=== PATIENT | female | born 1955 | race Hispanic/Latino ===

== ENCOUNTER 2021-04-19 06:03 | Inpatient (IN) | payer MEDICARE ==
[2021-04-19] VITALS (27 sets, daily range): BP systolic 111–140; BP diastolic 40–76
[2021-04-19] MEDS: CEFAZOLIN SODIUM 1 GM VIAL IVP SCH ×4 (06:00→19:00)
[~2021-04-19 06:03] MED LIST: GABA600T10 PO
[2021-04-19 07:00] LABS: APPEARANCE,URINE Clear (CLEAR); BILIRUBIN,URINE Negative (NEGATIVE); COLOR,URINE Yellow (YELLOW); GLUCOSE, URINE (UA) Negative (NEGATIVE); KETONES,URINE Trace mg/dL (NEGATIVE); LEUKOCYTE ESTERASE ,URINE Negative (NEGATIVE); NITRATE,URINE Negative (NEGATIVE); OCCULT BLOOD,URINE Negative (NEGATIVE); PROTEIN,URINE POS 2+ mg/dL (NEGATIVE)
[2021-04-19 07:11] LABS: BASOPHILS % (AUTO) 0.6 % (0.0-5.0); EOSINOPHILS % (AUTO) 1.5 % (0.0-8.0); HEMATOCRIT 41.9 % (36-48); LYMPHOCYTES % (AUTO) 26.4 % (21.0-51.0); MEAN CORPUSCULAR HEMOGLOBIN 32.9 pg (27.0-33.0); MEAN CORPUSCULAR HGB CONC 32.7 g/dL (32.0-36.0); MEAN CORPUSCULAR VOLUME 100.5 fL (79-99); NEUTROPHILS % (AUTO) 62.1 % (40.0-77.0); PLATELET COUNT (AUTO) 293 K/uL (130-400); RED BLOOD CELL COUNT(AUTO) 4.17 MIL/uL (4.00-5.50); RED CELL DISTRIBUTION WIDTH 12.9 % (11.0-15.5); WHITE BLOOD COUNT (AUTO) 9.4 K/uL (4.8-10.8)
[2021-04-19 07:12] LABS: BACTERIA,URINE Rare /HPF (None Seen); HYALINE CASTS, URINE 0-1 /LPF (0-1 /LPF); RBC,URINE 0-1 /HPF (0-1); SQUAMOUS EPITHELIAL CELL,UR Rare /HPF (0-2)
[2021-04-19] MEDS ORDERED: 0.9%NACL 1000ML 1,000 ML IV ONE (07:15)
[2021-04-19 07:18] LABS: INR 0.96 (0.85-1.15); PROTHROMBIN TIME 10.5 SEC (9.6-11.6)
[2021-04-19 07:20] LABS: CREATININE 0.5 mg/dL (0.5-1.5); POTASSIUM 3.6 mmol/L (3.5-5.1)
[2021-04-19] MEDS ORDERED: KETAMINE 50MG/ML SYRINGE 50 MG/ML DISP.SYRIN IV ONE (08:01)
[2021-04-19] MEDS ORDERED: LIDOCAINE PF 100MG/5ML (2%) SYRINGE 5ML ONE (08:02)
[2021-04-19] MEDS ORDERED: SUCCINYLCHOLINE CHLORIDE 20 MG/ML 10 ML VIAL ONE (08:02)
[2021-04-19] MEDS ORDERED: ROPIVACAINE 0.5% 5MG/ML 30ML IJ ONE ×2 (08:02)
[2021-04-19] MEDS ORDERED: PROPOFOL 10 MG/ML 20ML VIAL IV ONE (08:03)
[2021-04-19] MEDS ORDERED: MIDAZOLAM HCL 1 MG/ML 2ML VIAL ONE (08:13)
[2021-04-19] MEDS ORDERED: ROCURONIUM 10MG/1ML SYR 10 MG/ML ML ONE (08:30)
[2021-04-19] MEDS ORDERED: CEFAZOLIN SODIUM 1 GM VIAL ONE (09:10)
[2021-04-19] MEDS ORDERED: GLYCOPYRROLATE 1 MG/5 ML SYRINGE ONE (09:18)
[2021-04-19] MEDS ORDERED: NEOSTIGMINE 5MG/5ML SYR IV ONE (09:19)
[2021-04-19] MEDS ORDERED: PHENYLEPHRINE HCL 10 MG/ML 1ML VIAL IV ONE (09:59)
[2021-04-19] MEDS ORDERED: ONDANSETRON 4MG INJ ONE (10:19)
[2021-04-19] MEDS ORDERED: 0.9%NACL 10ML VIAL ONE (10:43)
[2021-04-19] MEDS ORDERED: LIDOCAINE HCL-MPF 1% 2ML VIAL IV PRN (11:00)
[2021-04-19] MEDS ORDERED: OXYCODONE HCL 5 MG TAB PO PRN (11:00)
[2021-04-19] MEDS ORDERED: DIPHENHYDRAMINE HCL 25 MG CAPSULE PO PRN (11:00)
[2021-04-19] MEDS ORDERED: POTASSIUM CHLORIDE 20MEQ/100ML 100 ML IV PRN (11:00)
[2021-04-19] MEDS ORDERED: POTASSIUM CHLORIDE 10% ELIXIR 20 MEQ/15 ML UDCUP PO PRN (11:00)
[2021-04-19] MEDS ORDERED: CALCIUM CARB 500MG PO PRN (11:00)
[2021-04-19] MEDS ORDERED: FERROUS FUMARATE 324 MG TABLET PO PRN (11:00)
[2021-04-19] MEDS ORDERED: TRAMADOL HCL 50 MG TABLET PO PRN (11:00)
[2021-04-19] MEDS ORDERED: KCL 20 MEQ ERTAB PO PRN (11:00)
[2021-04-19] MEDS: ACETAMINOPHEN 500 MG TABLET PO SCH ×2 (11:00→20:51)
[2021-04-19] MEDS ORDERED: DiphenhydrAMINE HCL 50 MG/ML VIAL IVP PRN (11:00)
[2021-04-19] MEDS: 0.9%NACL 1000ML 1,000 ML IV SCH ×2 (11:00→21:00)
[2021-04-19] MEDS ORDERED: ONDANSETRON 4MG INJ IVP PRN (11:00)
[2021-04-19] MEDS ORDERED: MEPERIDINE-PF 25 MG/ML SYG ONE (11:01)
[2021-04-19] MEDS: PSYLLIUM SEED 1 EACH PACKET PO SCH (12:00)
[2021-04-19] MEDS: KETOROLAC 15MG/ML VIAL (15MG/ML) IV PRN (13:29)
[2021-04-19] MEDS: OXYCODONE HCL 5 MG TAB PO PRN ×2 (13:38→20:52)
[2021-04-19] MEDS: TEMAZEPAM 15 MG CAPSULE PO PRN (20:51)
[2021-04-19] MEDS: FAMOTIDINE 20MG TAB PO SCH (20:52)
[2021-04-19] MEDS: CELECOXIB 200 MG CAP PO SCH (20:52)
[2021-04-20] VITALS (7 sets, daily range): BP systolic 96–145; BP diastolic 48–72
[2021-04-20] MEDS: ACETAMINOPHEN 500 MG TABLET PO SCH ×4 (02:28→22:00)
[2021-04-20] MEDS: KETOROLAC 15MG/ML VIAL (15MG/ML) IV PRN (02:33)
[2021-04-20] MEDS: OXYCODONE HCL 5 MG TAB PO PRN ×4 (02:51→20:32)
[2021-04-20 03:52] LABS: HEMATOCRIT 32.1 % (36-48); MEAN CORPUSCULAR HEMOGLOBIN 32.5 pg (27.0-33.0); MEAN CORPUSCULAR HGB CONC 32.4 g/dL (32.0-36.0); MEAN CORPUSCULAR VOLUME 100.3 fL (79-99); RED BLOOD CELL COUNT(AUTO) 3.2 MIL/uL (4.00-5.50); RED CELL DISTRIBUTION WIDTH 13.2 % (11.0-15.5); WHITE BLOOD COUNT (AUTO) 8.7 K/uL (4.8-10.8)
[2021-04-20 04:03] LABS: CREATININE 0.4 mg/dL (0.5-1.5); POTASSIUM 3.4 mmol/L (3.5-5.1)
[2021-04-20] MEDS: 0.9%NACL 1000ML 1,000 ML IV SCH (07:00)
[2021-04-20] MEDS: CELECOXIB 200 MG CAP PO SCH ×2 (08:21→20:31)
[2021-04-20] MEDS: POLYETHYLENE GLYCOL 3350 17 GM POWD.PACK PO SCH (08:21)
[2021-04-20] MEDS: ENOXAPARIN SODIUM 40 MG/0.4 ML SYRINGE SQ SCH (08:21)
[2021-04-20] MEDS: FAMOTIDINE 20MG TAB PO SCH ×2 (08:22→20:31)
[2021-04-20] MEDS: GABAPENTIN 300 MG CAPSULE PO SCH (08:23)
[2021-04-20] MEDS: PSYLLIUM SEED 1 EACH PACKET PO SCH (13:06)
[2021-04-20] MEDS: TEMAZEPAM 15 MG CAPSULE PO PRN (20:31)
[2021-04-21 03:48] VITALS: BP 126/49
[2021-04-21] MEDS: OXYCODONE HCL 5 MG TAB PO PRN ×3 (04:22→14:02)
[2021-04-21] MEDS: ACETAMINOPHEN 500 MG TABLET PO SCH ×2 (05:25→08:59)
[2021-04-21 07:11] VITALS: BP 100/58
[2021-04-21] MEDS: CELECOXIB 200 MG CAP PO SCH (08:53)
[2021-04-21] MEDS: ENOXAPARIN SODIUM 40 MG/0.4 ML SYRINGE SQ SCH (08:53)
[2021-04-21] MEDS: FAMOTIDINE 20MG TAB PO SCH (08:53)
[2021-04-21] MEDS: POLYETHYLENE GLYCOL 3350 17 GM POWD.PACK PO SCH (08:53)
[2021-04-21] MEDS: GABAPENTIN 300 MG CAPSULE PO SCH (08:54)
[2021-04-21] MEDS ORDERED: BISACODYL 5 MG TABLET.DR PO PRN (11:00)
[2021-04-21 11:10] VITALS: BP 115/59
[2021-04-21] MEDS: PSYLLIUM SEED 1 EACH PACKET PO SCH (14:01)
[2021-04-21 15:40] VITALS: BP 116/70
[2021-04-21 20:00] VITALS: BP 148/60
[2021-04-22] MEDS ORDERED: BISACODYL 10 MG SUPP.RECT RC PRN (11:00)
== END 2021-04-21 22:00 | DRG 517 ==
LOC: OBSVTOIN 06:03 → DAHIP 06:03 → EDSTATUS 08:30 → 4BH 13:27
PROVIDERS: ADMIT Orthopaedic Surgery; ATTEND Orthopaedic Surgery
PROC: 0QSF04Z Reposition Left Patella with Internal Fixation Device, Open Approach (ICD-10-PCS; principal; 2021-04-19 09:07)
PROC: 3E0T3BZ Introduction of Anesthetic Agent into Peripheral Nerves and Plexi, Percutaneous Approach (ICD-10-PCS; 2021-04-19 09:07)
DX: S82.002A Unspecified fracture of left patella, initial encounter for closed fracture (principal); D64.9 Anemia, unspecified; W01.0XXA Fall on same level from slipping, tripping and stumbling without subsequent striking against object, initial encounter; J44.9 Chronic obstructive pulmonary disease, unspecified; M19.90 Unspecified osteoarthritis, unspecified site; F41.9 Anxiety disorder, unspecified; G89.29 Other chronic pain; M54.9 Dorsalgia, unspecified; Z20.822 Contact with and (suspected) exposure to COVID-19; Y93.89 Activity, other specified; Y92.89 Other specified places as the place of occurrence of the external cause; Y99.8 Other external cause status; Z83.3 Family history of diabetes mellitus; Z82.49 Family history of ischemic heart disease and other diseases of the circulatory system
CPT/HCPCS: 36415; 73560; 80048; 81001; 85025; 85027; 85610; 85730; 87088; 87635; 87641; 97039; C1713; G0378; J0330; J0690; J1650; J1885; J2001; J2175; J2250; J2370; J2405; J2704; J2710; J2795; J3490; J7030; Q0163

== ENCOUNTER → 2022-05-05 | Outpatient (CLI) | payer MEDICARE | END | disposition home or self-care (01) | LOC: RAH 14:18 | PROVIDERS: ATTEND Family Medicine | DX: R51.9 Headache, unspecified (principal) | CPT/HCPCS: 70450 ==